=== PATIENT | female | born 1990 | race Caucasian/White ===

== ENCOUNTER 2021-03-24 11:37 | Emergency (ER) | payer OTHER ==
[~2021-03-24] VITALS: Ht 170.2 cm; Wt 100.0 kg
[2021-03-24] MEDS ORDERED: IBUPROFEN 600MG TABLET PO STA (12:11)
[2021-03-24 12:37] LABS: CLARITY URINE CLOUDY (CLEAR); COLOR URINE YELLOW (YELLOW); KETONES URINE NEGATIVE (NEGATIVE); LEUKOCYTE ESTERASE URINE NEGATIVE (NEGATIVE); NITRITE URINE NEGATIVE (NEGATIVE); OCCULT BLOOD URINE NEGATIVE (NEGATIVE); PROTEIN URINE NEGATIVE (NEGATIVE); SPECIFIC GRAVITY URINE 1.019 (1.005-1.030); UROBILINOGEN URINE 0.2 E.U./dL (0.2-1.0)
[2021-03-24] MEDS ORDERED: IBUP-2029 MT (13:57)
[2021-03-24 14:46] VITALS: BP 130/51
== END 2021-03-24 14:49 | disposition home or self-care (01) ==
LOC: ER 11:37
DX: M79.18 Myalgia, other site (principal); R07.89 Other chest pain; R42 Dizziness and giddiness; R30.0 Dysuria; R05.9 Cough, unspecified; Z86.16 Personal history of COVID-19
CPT/HCPCS: 71045; 81003; 93005; 99285

== ENCOUNTER 2021-12-30 09:26 | Emergency (ER) | payer OTHER ==
[~2021-12-30] VITALS: Ht 172.7 cm; Wt 101.0 kg
[~2021-12-30 09:26] MED LIST: IBUP-2029 MT
[2021-12-30] MEDS ORDERED: ACETAMINOPHEN 325MG TABLET PO ONE (10:00)
[2021-12-30] MEDS ORDERED: TOPUD PO (11:27)
[2021-12-30] MEDS ORDERED: AMOX1TAB16 PO (11:27)
[2021-12-30 12:00] VITALS: BP 121/68
== END 2021-12-30 12:13 | disposition home or self-care (01) ==
LOC: ER 09:26
DX: J02.9 Acute pharyngitis, unspecified (principal); Z20.822 Contact with and (suspected) exposure to COVID-19; Z98.890 Other specified postprocedural states
CPT/HCPCS: 71045; 87426; 87804; 99284; C9803

== ENCOUNTER 2022-03-31 08:47 | Emergency (ER) | payer OTHER ==
[~2022-03-31] VITALS: Ht 167.6 cm; Wt 104.0 kg
[~2022-03-31 08:47] MED LIST changes: +AMOX1TAB16 PO; +TOPUD PO
[2022-03-31 08:56] VITALS: BP 151/101
[2022-03-31 09:49] LABS: CLARITY URINE CLEAR (CLEAR); COLOR URINE YELLOW (YELLOW); KETONES URINE NEGATIVE (NEGATIVE); LEUKOCYTE ESTERASE URINE NEGATIVE (NEGATIVE); NITRITE URINE NEGATIVE (NEGATIVE); OCCULT BLOOD URINE NEGATIVE (NEGATIVE); PH URINE 5.5 (4.5-8.0); PROTEIN URINE NEGATIVE (NEGATIVE); SPECIFIC GRAVITY URINE 1.022 (1.005-1.030); UROBILINOGEN URINE 0.2 E.U./dL (0.2-1.0)
[2022-03-31 09:52] LABS: BASOPHILS % 0.8 % (0.0-2.0); EOSINOPHILS % 2.7 % (0.0-5.0); HEMATOCRIT. 42.2 % (36.0-48.0); HEMOGLOBIN. 14.2 g/dL (12.0-16.0); LYMPHOCYTES % 18.9 % (20.0-50.0); MEAN CORPUSCULAR HEMOGLOBIN 32.2 pg (28.0-32.0); MEAN CORPUSCULAR VOLUME 95.4 fL (81.0-99.0); MEAN PLATELET VOLUME 8.3 fl (7.4-10.4); MONOCYTES % 5.2 % (2.0-8.0); NEUTROPHILS % 72.4 % (40.0-76.0); PLATELET 349 x1000/uL (130-400); RED BLOOD CELL COUNT 4.42 mill/uL (4.2-5.4); RED CELL DISTRIBUTION WIDTH 13.6 % (11.6-14.6)
[2022-03-31 09:56] LABS: CHLORIDE 109 mEq/L (98-107)
[2022-03-31 10:24] LABS: HCG SCREEN NEGATIVE
[2022-03-31] MEDS ORDERED: VISCOUS LIDOCAINE 2% 15 ML UDC PO STA (10:38)
[2022-03-31] MEDS ORDERED: DICYCLOMINE 10 MG/5 ML ORAL SYR PO STA (10:38)
[2022-03-31] MEDS ORDERED: ONDANSETRON 4MG ODT PO STA (10:38)
[2022-03-31] MEDS ORDERED: MAGNESIUM/ALUMINUM HYDROXIDE/SIMETHICONE 30ML UDC PO STA (10:38)
[2022-03-31] MEDS ORDERED: FAMO40TA70 MT (11:07)
== END 2022-03-31 11:34 | disposition home or self-care (01) ==
LOC: ER 08:47
DX: R10.9 Unspecified abdominal pain (principal); Z98.890 Other specified postprocedural states
CPT/HCPCS: 36415; 76700; 80053; 81003; 81025; 83690; 84703; 85025; 99284; Q0162

== ENCOUNTER 2022-09-19 18:51 | Emergency (ER) | payer OTHER ==
[~2022-09-19] VITALS: Ht 165.1 cm; Wt 105.0 kg
[~2022-09-19 18:51] MED LIST changes: +FAMO40TA70 MT
[2022-09-19 19:15] VITALS: BP 156/97; O2SAT 100
[2022-09-20 00:57] VITALS: PULSE 75; RESP 16; TEMP 98.8
== END 2022-09-20 00:58 | disposition home or self-care (01) ==
LOC: ER 19:34
DX: T19.2XXA Foreign body in vulva and vagina, initial encounter (principal); X58.XXXA Exposure to other specified factors, initial encounter
CPT/HCPCS: 81025; 99284; Z7610 ×2

== ENCOUNTER 2023-01-04 18:36 | Emergency (ER) | payer OTHER ==
[~2023-01-04] VITALS: Ht 165.1 cm; Wt 91.0 kg
[2023-01-04 18:50] VITALS: BP 138/71; PULSE 77; RESP 16; TEMP 98.4; O2SAT 100
[2023-01-05] MEDS ORDERED: IBUP-2028 MT (19:08)
[2023-01-05] MEDS ORDERED: TOPUD MT (19:08)
[2023-01-05] MEDS ORDERED: NITR100C MT (20:54)
== END 2023-01-04 19:00 | disposition left against medical advice (07) ==
LOC: ER 18:36
DX: R50.9 Fever, unspecified (principal); R11.10 Vomiting, unspecified; Z53.21 Procedure and treatment not carried out due to patient leaving prior to being seen by health care provider
CPT/HCPCS: 99281

== ENCOUNTER 2023-01-07 15:42 | Emergency (ER) | payer OTHER ==
[~2023-01-07] VITALS: Ht 165.1 cm; Wt 90.7 kg
[~2023-01-07 15:42] MED LIST changes: +IBUP-2028 MT; +NITR100C MT; +TOPUD MT
[2023-01-07 16:02] VITALS: BP 154/91; PULSE 97; RESP 16; TEMP 99.1; O2SAT 100
[2023-01-07] MEDS ORDERED: CIPR1DRO2 LEFT EAR (18:03)
[2023-01-07] MEDS ORDERED: AMOX-494 MT (18:03)
== END 2023-01-07 18:44 | disposition home or self-care (01) ==
LOC: ER 15:42
DX: H66.92 Otitis media, unspecified, left ear (principal)
CPT/HCPCS: 99283

== ENCOUNTER 2024-08-13 18:42 | Emergency (ER) | payer OTHER ==
[~2024-08-13] VITALS: Ht 165.1 cm; Wt 102.0 kg
[~2024-08-13 18:42] MED LIST changes: +AMOX-494 MT; +CIPR1DRO2 LEFT EAR
[2024-08-13 18:44] VITALS: O2SAT 98
[2024-08-13 21:23] VITALS: BP 137/84; PULSE 88; RESP 20; TEMP 37.1; O2SAT 98
[2024-08-13] MEDS ORDERED: CEPH500T MT (21:47)
[2024-08-13] MEDS ORDERED: MUPI22OI2 TP (21:47)
[2024-08-13] MEDS ORDERED: SULF1TAB48 MT (21:47)
[2024-08-13] MEDS: CEPHALEXIN 250MG CAPSULE PO ONE (22:05)
[2024-08-13] MEDS: SULFAMETHOXAZOLE/TRIMETHOPRIM 800/160MG TABLET PO ONE (22:05)
== END 2024-08-13 22:14 | disposition home or self-care (01) ==
LOC: ER 18:42
DX: L03.116 Cellulitis of left lower limb (principal); L03.115 Cellulitis of right lower limb; Z79.899 Other long term (current) drug therapy
CPT/HCPCS: 73590; 81025; 99283